=== PATIENT | female | born 1995 | race Caucasian/White ===

== ENCOUNTER 2020-11-22 12:13 | Emergency (ER) | payer MEDICAID ==
[2020-11-22] MEDS ORDERED: KEPPRA 500MG500 MG PO (13:13)
[2020-11-22] MEDS ORDERED: ADMELOG SO100 UNIT/1 SQ (13:13)
[2020-11-22 14:09] LABS: URINE APPEARANCE HAZY; URINE BILIRUBIN 1+ (NEGATIVE); URINE BLOOD NEGATIVE (NEGATIVE); URINE COLOR YELLOW; URINE KETONE 3+ (NEGATIVE); URINE LEUKOCYTE ESTERASE NEGATIVE (NEGATIVE); URINE MUCUS PRESENT (NOT PRESENT); URINE NITRATE NEGATIVE (NEGATIVE); URINE PROTEIN(semi-quant) TRACE mg/dL (NEGATIVE); URINE UROBILINOGEN NORMAL (NORMAL)
[2020-11-22 14:50] LABS: ALBUMIN 3.8 g/dL (3.5-5.0)
[2020-11-22 14:51] LABS: BASO # 0.03 (0.02-0.10); CALCIUM 9.2 mg/dL (8.3-10.5); EOS # 0.08 (0.04-0.40); EOS % 1.2 % (1.0-5.0); HEMATOCRIT 39.5 % (37.0-47.0); HEMOGLOBIN 13.5 g/dL (12.5-16.0); LYMPH# 2.24 (1.50-4.00); MEAN CELL VOLUME 91 fl (78-100); MEAN CORPUSCULAR HEMOGLOBIN 31 pg (27-31); MEAN CORPUSCULAR HGB CONC 34 g/dL (33-37); MEAN PLATELET VOLUME 10.6 fl (7.4-10.4); MONO # 0.34 (0.20-0.80); NEU # 4.25 (1.40-6.50); PLATELET COUNT 243 K/mm3 (130-400); RED BLOOD COUNT 4.36 M/mm3 (4.10-5.30); RED CELL DISTRIBUTION WIDTH 12.5 % (11.5-14.5)
[2020-11-22 14:53] LABS: TOTAL PROTEIN 6.5 g/dL (6.4-8.3)
[2020-11-22 14:54] LABS: TOTAL BILIRUBIN 0.6 mg/dL (0.2-1.2)
[2020-11-22 14:59] LABS: POTASSIUM 4.3 mmol/L (3.5-5.1)
[2020-11-22] MEDS ORDERED: LANTUS SOLOS100 U/ML SQ (15:36)
[2020-11-22 16:00] VITALS: BP 118/83
== END 2020-11-22 16:00 | disposition home or self-care (01) ==
LOC: ED 12:13
PROVIDERS: Family Medicine
DX: N91.2 Amenorrhea, unspecified (principal); E10.9 Type 1 diabetes mellitus without complications; R35.0 Frequency of micturition; Z87.820 Personal history of traumatic brain injury; Z79.4 Long term (current) use of insulin; Z79.899 Other long term (current) drug therapy